=== PATIENT | female | born 1945 | race Caucasian/White ===

== ENCOUNTER → 2016-08-01 | Outpatient (CLI) | payer MEDICARE, OTHER ==
[~2016-08-01] MED LIST: ALLO300T74 PO; AMLO10TA2 PO; CALC-52 PO; DICY10CA13 PO; DIPH1TAB PO; GABA-338 PO; HYDR-4072 PO; LEVO88TA41 PO; METO-275 PO; PRAV40TA46 PO; SERT50TA12 PO
--- NOTE | 2016-08-01 14:15 | DI ---
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 Iterative Reconstruction dose reducing technique was utilized. FINDINGS: The ventricles are of normal size, shape, and contour for the patient's age. There are scattered areas of low attenuation in the white matter which most likely represent changes from chronic microvascular ischemia. The brainstem, cerebellum, and cerebral hemispheres otherwise have a normal morphology and CT attenuation. There is no evidence of midline displacement. No hemorrhage, signs of acute territorial stroke, mass effect, mass lesions, or edema is evident. The visualized portions of the skull base, midface, and calvarium demonstrate no abnormality. The paranasal sinuses are well aerated and free of significant disease. The tympanic and mastoid cavities appear normal. IMPRESSION: No acute intracranial abnormality or hemorrhage. Stable head CT. .
--- NOTE | 2016-08-01 14:41 | DI ---
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 Velocities in cm/sec - validated velocity measurements with angiographic measurements, velocity criteria are extrapolated from diameter data as defined by the Society of Radiologists in Ultrasound Consensus Conference Radiology 2003; 229;340-346. RIGHT: PSV ICA 73 EDV ICA 73 PSV CCA 51 EDV CCA 9 SVR 1.4 PSV ECA 66 ICA Diameter reduction 20%-40% (1.2-1.4 [id number])% LEFT: PSV ICA 69 EDV ICA 20 PSV CCA 56 EDV CCA 13 SVR 1.2 PSV ECA 74 ICA Diameter reduction 20%-40% (1.2-1.4 [id number])% The right vertebral artery is patent with cephalic flow. The left vertebral artery is patent with cephalic flow. Minimal calcified plaque in the right carotid bulb and proximal to mid ICA. No velocity elevation. Mild plaque in the left carotid bulb. No velocity elevation on the left. IMPRESSION: No hemodynamically significant carotid stenosis. .
== END ==
LOC: IMA 13:17
PROVIDERS: ATTEND Family Medicine
DX: G45.9 Transient cerebral ischemic attack, unspecified (principal)